=== PATIENT | female | born 1950 | race Caucasian/White ===

== ENCOUNTER → 2024-10-08 14:27 | Outpatient (REF) | payer OTHER, SELFPAY | LOC: RSP 14:27 | PROVIDERS: ATTENDING PHYSICIAN Internal Medicine Infectious Disease | DX: A31.0 Pulmonary mycobacterial infection (principal) | CPT/HCPCS: 87116 ==

== ENCOUNTER → 2024-11-26 08:57 | Outpatient (REF) | payer OTHER, SELFPAY | LOC: HWRAD 08:57 | PROVIDERS: ATTENDING PHYSICIAN Internal Medicine Endocrinology, Diabetes & Metabolism; FAMILY PHYSICIAN Family Medicine | DX: M81.0 Age-related osteoporosis without current pathological fracture (principal) | CPT/HCPCS: 77080 ==